=== PATIENT | female | born 1995 | race Caucasian/White ===

== ENCOUNTER 2018-08-12 00:57 | Inpatient (IN) | payer OTHER ==
[~2018-08-12] VITALS: Ht 160 cm; Wt 54.4 kg
[~2018-08-12 00:57] MED LIST: VITAFUSION
[2018-08-12] MEDS ORDERED: PRENATABS RX T1 EACH PO (08:25)
[2018-08-14] MEDS ORDERED: HYDROXYZINE PAM25 MG PO (07:02)
== END 2018-08-14 10:01 | DRG 833 ==
LOC: OBS/DEL 00:57 → OB/GYN 07:34 → OBS/DEL 07:34 → LDR 07:34 → OB/GYN 11:15
PROC: BY4CZZZ Ultrasonography of Second Trimester, Single Fetus (ICD-10-PCS; principal; 2018-08-12)
PROC: 4A1HXCZ Monitoring of Products of Conception, Cardiac Rate, External Approach (ICD-10-PCS; 2018-08-12)
DX: O47.02 False labor before 37 completed weeks of gestation, second trimester (principal); O46.8X2 Other antepartum hemorrhage, second trimester

== ENCOUNTER 2018-11-17 08:30 | Inpatient (IN) | payer OTHER ==
[~2018-11-17] VITALS: Ht 160 cm; Wt 61.7 kg
[~2018-11-17 08:30] MED LIST changes: +HYDROXYZINE PAM25 MG PO; +PRENATABS RX T1 EACH PO
== END 2018-11-19 11:48 | disposition home or self-care (01) | DRG 807 ==
LOC: LDR 08:30 → OB/GYN 18:33
PROVIDERS: ADMIT Obstetrics & Gynecology
PROC: 10E0XZZ Delivery of Products of Conception, External Approach (ICD-10-PCS; principal; 2018-11-17)
PROC: 4A1HXCZ Monitoring of Products of Conception, Cardiac Rate, External Approach (ICD-10-PCS; 2018-11-17)
PROC: 0UQGXZZ Repair Vagina, External Approach (ICD-10-PCS; 2018-11-17)
PROC: 0W8NXZZ Division of Female Perineum, External Approach (ICD-10-PCS; 2018-11-17)
DX: O71.4 Obstetric high vaginal laceration alone (principal); Z37.0 Single live birth; Z3A.39 39 weeks gestation of pregnancy